=== PATIENT | female | born 2000 | race Caucasian/White ===

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

== ENCOUNTER → 2023-11-01 | Outpatient (CLI) | payer OTHER | LOC: M LAB 15:31 | PROVIDERS: ATTEND Advanced Practice Midwife | DX: O20.9 Hemorrhage in early pregnancy, unspecified (principal); Z3A.00 Weeks of gestation of pregnancy not specified ==

== ENCOUNTER → 2024-05-13 | Outpatient (CLI) | payer OTHER ==
[2024-05-13 13:51] LABS: HEMATOCRIT 38.1 % (36.0-47.0); HEMOGLOBIN 13.1 g/dl (12.0-15.5); MEAN CORPUSCULAR HEMOGLOBIN 31.3 pg (27.0-33.0); MEAN CORPUSCULAR HGB CONC 34.4 g/dl (32.0-36.5); MEAN CORPUSCULAR VOLUME 90.9 fl (80.0-96.0); PLATELET COUNT, AUTOMATED 219 10^3/uL (150-450); RED BLOOD COUNT 4.19 10^6/uL (4.00-5.40); WHITE BLOOD COUNT 10.1 10^3/uL (4.0-10.0)
[2024-05-13 15:05] LABS: GC DNA AMPLIFICATION NEGATIVE (NEGATIVE)
[2024-05-14 19:00] LABS: HIV 1&2 SCREEN NEGATIVE (NEGATIVE)
[2024-05-14 19:20] LABS: HEPATITIS C VIRUS ABY INDEX > 11.00 INDEX (<0.8)
== END ==
LOC: M PLALAB 10:47
PROVIDERS: ATTEND Advanced Practice Midwife
DX: O99.331 Smoking (tobacco) complicating pregnancy, first trimester (principal); Z3A.00 Weeks of gestation of pregnancy not specified

== ENCOUNTER → 2024-06-22 | Outpatient (CLI) | payer OTHER, MEDICAID | LOC: M PLALAB 14:40 | PROVIDERS: ATTEND Nurse Practitioner Family | DX: Z34.82 Encounter for supervision of other normal pregnancy, second trimester (principal); Z3A.00 Weeks of gestation of pregnancy not specified ==

== ENCOUNTER → 2024-07-31 | Outpatient (CLI) | payer OTHER, MEDICAID | LOC: M WHC 13:01 | PROVIDERS: ATTEND Nurse Practitioner Family | DX: Z34.82 Encounter for supervision of other normal pregnancy, second trimester (principal); Z3A.20 20 weeks gestation of pregnancy ==

== ENCOUNTER → 2024-09-10 | Outpatient (CLI) | payer OTHER, MEDICAID | LOC: M WHC 12:05 | PROVIDERS: ATTEND Nurse Practitioner Family | DX: Z34.80 Encounter for supervision of other normal pregnancy, unspecified trimester (principal) ==

== ENCOUNTER → 2024-09-16 | Outpatient (CLI) | payer OTHER, MEDICAID ==
[2024-09-16 17:47] LABS: HEMATOCRIT 31.9 % (36.0-47.0); HEMOGLOBIN 10.7 g/dl (12.0-15.5); MEAN CORPUSCULAR HEMOGLOBIN 31.4 pg (27.0-33.0); MEAN CORPUSCULAR HGB CONC 33.5 g/dl (32.0-36.5); MEAN CORPUSCULAR VOLUME 93.5 fl (80.0-96.0); PLATELET COUNT, AUTOMATED 215 10^3/uL (150-450); RED BLOOD COUNT 3.41 10^6/uL (4.00-5.40); WHITE BLOOD COUNT 8.3 10^3/uL (4.0-10.0)
[2024-09-16 17:49] LABS: GLUCOSE CHALLENGE TEST 1 HOUR 111 MG/DL (LESS THAN 140)
[2024-09-16 18:20] LABS: HIV 1&2 SCREEN NEGATIVE (NEGATIVE)
[2024-09-16 18:59] LABS: Trichomonas vaginalis (AMP) NOT DETECTED (NEGATIVE)
[2024-09-16 19:20] LABS: HEPATITIS C VIRUS ABY INDEX > 11.00 INDEX (<0.8)
[2024-09-16 19:23] LABS: GC DNA AMPLIFICATION NEGATIVE (NEGATIVE)
[2024-09-18 10:28] LABS: HCV RNA QUANTITATION <15 NOT DETECTED IU/mL (NOT DETECTED); HCV RNA log10 <1.18 NOT DETECTED Log IU/mL (NOT DETECTED)
[2024-09-19 08:52] LABS: HCV LOG10 <1.18 NOT DETECTED Log IU/mL (NOT DETECTED)
== END ==
LOC: M PLALAB 14:12
PROVIDERS: ATTEND Obstetrics & Gynecology
DX: Z34.82 Encounter for supervision of other normal pregnancy, second trimester (principal)

== ENCOUNTER 2024-11-09 19:06 | Emergency (ER) | payer OTHER, MEDICAID ==
[2024-11-09] MEDS ORDERED: ACET-907 PO (19:30)
[2024-11-09] MEDS ORDERED: PRENTAB9 PO (19:30)
== END 2024-11-09 19:20 | disposition admitted as inpatient to this hospital (09) ==
LOC: M ED 19:06
DX: Z53.21 Procedure and treatment not carried out due to patient leaving prior to being seen by health care provider (principal)

== ENCOUNTER 2024-11-09 19:17 | Outpatient (CLI) | payer OTHER, MEDICAID ==
[~2024-11-09] VITALS: Ht 167.6 cm; Wt 93.8 kg
[2024-11-09] MEDS ORDERED: ACET-907 PO (19:30)
[2024-11-09] MEDS ORDERED: PRENTAB9 PO (19:30)
[2024-11-09 19:35] VITALS: BP 112/76
[2024-11-09] MEDS ORDERED: HOME MED LIST COMPLETE! XX SCH (19:50)
[2024-11-09] MEDS: FLUCONAZOLE 50MG TABLET PO ONE (21:02)
== END 2024-11-09 21:03 | disposition home or self-care (01) ==
LOC: M LDO 19:17
PROVIDERS: ATTEND Advanced Practice Midwife
DX: O23.593 Infection of other part of genital tract in pregnancy, third trimester (principal); O99.333 Smoking (tobacco) complicating pregnancy, third trimester; B37.9 Candidiasis, unspecified; F17.210 Nicotine dependence, cigarettes, uncomplicated; Z3A.34 34 weeks gestation of pregnancy
CPT/HCPCS: 59025; 87210; G0463